=== PATIENT | male | born 1995 | race Caucasian/White ===

== ENCOUNTER 2017-09-30 07:15 | Emergency (ER) | payer BC ==
[2017-09-30 07:41] VITALS: BP 121/61
--- NOTE | 2017-09-30 07:55 | EDM.PDOC ---
ED HPI GENERAL MEDICAL PROBLEM - General Chief Complaint: Eye Problems Stated Complaint: "Flash Burn" to eyes Time Seen by Provider: 09/30/17 07:50 Source of Information: Reports: Patient, Family (Mother), Old Records ([facility] chart/EMR) History Limitations: Reports: No Limitations - History of Present Illness INITIAL COMMENTS - FREE TEXT/NARRATIVE: The patient was brought to the emergency room via private automobile by his mother for evaluation of 8/10 bilateral burning eye pain secondary to probable welder tack burn, which occurred at about 16:00 hours yesterday afternoon. Patient was working on a car at his home and was briefly welding without using any kind 5 protection. Previous to this he was also grinding some metal on his car without safety glasses, however denies any known history of foreign body, etc. He has had trouble seeing since this morning with progressive symptoms since that time. Last TdAP was given on 01/03/03 as confirmed by the emergency room note today. The patient also denies any recent fever, cough, wheezing, dyspnea, etc.. No recent history of abdominal pain, heartburn, nausea, diarrhea, melena, gross hematochezia, or any food intolerance, including fatty foods, etc.. Onset: Gradual Onset Date: 09/29/17 Onset Time: 16:00 Duration: Constant, Getting Worse Location: Reports: Face (Eyes bilaterally as above). Denies: Head, Neck, Chest , Abdomen, Back Quality: Reports: Burning, Same as Previous Episode Severity: Moderate Improves with: Reports: None Worsens with: Reports: None Context: Reports: Other (As above). Denies: Sick Contact, Trauma Associated Symptoms: Reports: No Other Symptoms. Denies: Confusion, Chest Pain , Cough, Diaphoresis, Fever/Chills, Headaches, Loss of Appetite, Nausea/Vomiting , Rash, Shortness of Breath, Weakness Treatments ADMINISTRATIVE TECH: Reports: Other (see below) (None) Bilateral Eye Pain Score (Numeric/FACES): 8 - Related Data Allergies Allergy/AdvReac Type Severity Reaction Status Date / Time amoxicillin trihydrate Allergy Severe Other Verified 11/21/14 01:23 [From Augmentin] potassium clavulanate Allergy Severe Other Verified 11/21/14 01:23 [From Augmentin] blueberry Allergy Hives Verified 11/21/14 01:23 Home Meds: Home Meds Albuterol Sulfate [Albuterol Sulfate HFA] 8.5 gm IH Q4HR PRN 11/21/14 [History] Fluticasone Propionate [Flovent HFA 220 MCG] 1 puff INH BID PRN 11/21/14 [ History] Polymyxin B Sulf/Trimethoprim [Polytrim Eye Drops] 2 drop EYEBOTH QID #1 bottle 09/30/17 [Rx] Past Medical History HEENT History: Reports: Allergic Rhinitis, Impaired Vision, Other (See Below). Denies: Glaucoma, Hard of Hearing, Macular Degeneration, Otitis Media, Retinal Detachment Other HEENT History: Nasal fracture 2 initially at age 14 with last fracture at age 16. Patient does have soft contact lenses and glasses, however he never wears these. Cardiovascular History: Reports: Heart Murmur, Hypertension, Other (See Below). Denies: Aneurysm, Arrhythmia, Blood Clots/VTE/DVT, High Cholesterol, Syncope Other Cardiovascular History: Benign heart murmur as an . Hypertension with no current medical therapy after intentional weight loss. Respiratory History: Reports: Asthma, Bronchitis, Recurrent. Denies: Intubation , Previous, PE, Pneumothorax, Sleep Apnea Gastrointestinal History: Reports: None. Denies: Celiac Disease, Cholelithiasis , Gastritis, GERD, GI Bleed, Hepatitis, Hiatal Hernia, Inflammatory Bowel Disease, Irritable Bowel Syndrome, Jaundice, Pancreatitis, PUD Genitourinary History: Reports: None. Denies: Chronic Renal Insuffiency, Renal Calculus, Retention, Urinary, STD, Urinary Incontinence, UTI, Recurrent Musculoskeletal History: Reports: Fracture, Other (See Below). Denies: Arthritis, Back Pain, Chronic, Gout, Neck Pain, Chronic, Osteoarthritis, RA, SLE Other Musculoskeletal History: Questionable right hand proximal phalangeal fractures of digits #2, 3, and 4 with negative x-rays on 01/07/09. Distal right fourth and fifth metacarpal fractures in about 2012. Severe left ankle sprain on 09/04/10. History of recurrent torticollis area. Neurological History: Reports: Concussion, Headaches, Chronic, Head Trauma, Other (See Below). 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 Head concussion at age 12. Psychiatric History: Reports: ADD, ADHD, Anxiety, Depression, Emotional Problems , Other (See Below). Denies: Abuse, Victim of, Addiction, Psych Hospitalization (s), PTSD, Suicide Attempt, Suicidal Ideation Other Psychiatric History: Borderline anxiety and ADHD with secondary school problems, confrontational behavior, etc. with patient not able to complete high school. He did have problems with a principal during grade school. No medical therapy to this point. Endocrine/Metabolic History: Reports: Obesity/BMI 30+. Denies: Diabetes, Type I , Diabetes, Type II, Hypothyroidism, IDDM Hematologic History: Reports: None. Denies: Anemia, Blood Transfusion(s), Iron Deficiency Immunologic History: Reports: None. Denies: AIDS, HIV, SLE Oncologic (Cancer) History: Reports: None. Denies: Basal Cell Carcinoma, Hodgkin's Lymphoma, Leukemia, Lymphoma, Malignant Melanoma, Non-Hodgkin's Lymphoma, Squamous Cell Carcinoma Dermatologic History: Reports: None. Denies: Eczema, Psoriasis - Infectious Disease History Infectious Disease History: Reports: None. Denies: C-Difficile, Chicken Pox, Measles, Meningitis, Mononucleosis, MRSA, Mumps, Pertussis (Whooping Cough), Rheumatic Fever, Rubella, Scarlet Fever, Shingles, TB, VRE - Past Surgical History Head Surgeries/Procedures: Reports: None HEENT Surgical History: Reports: None. Denies: Adenoidectomy, Eye Surgery, Myringotomy w Tube(s), Naso-Sinus Surgery, Oral Surgery, Tonsillectomy Cardiovascular Surgical History: Reports: None. Denies: Varicose Respiratory Surgical History: Reports: None. Denies: Thoracentesis GI Surgical History: Reports: Appendectomy, Other (See Below). Denies: Cholecystectomy, Colonoscopy, EGD, Hernia, Inguinal, Hernia Repair/Other Other GI Surgeries/Procedures: Appendectomy on 01/08/02 Male Surgical History: Reports: Circumcision, Other (See Below). Denies: Vasectomy Other Male Surgeries/Procedures: Circumcision as an infant Endocrine Surgical History: Reports: None. Denies: Thyroid Biopsy Neurological Surgical History: Reports: None. Denies: C-Spine, Discectomy, Laminectomy, Lumbar Spine, Sacral Spine, Spinal Fusion, Thoracic Spine, Vertebroplasty Musculoskeletal Surgical History: Reports: None. Denies: Arthroscopic Procedure , Carpal Tunnel, Ganglion Cyst, Joint Replacement, ORIF, Shoulder Surgery Oncologic Surgical History: Reports: None Dermatological Surgical History: Reports: None - Past Imaging History Past Imaging History: Reports: CAT Scan (Last CT scan of the abdomen and pelvis on 02/03/09) Social & Family History - Tobacco Use Smoking Status *Q: Current Every Day Smoker Tobacco Use Within Last Twelve Months: Cigarettes Years of Tobacco use: 3 Packs/Tins Daily: 0.5 Packs/Tins Daily Comment: Maximum use of one pack per day Used Tobacco, but Quit: No Smoking Cessation Information Provided To Patient: Yes Second Hand Smoke Exposure: Yes Source of Second Hand Smoke Exposure: Father smokes Second Hand Smoke Education Provided: Yes - Alcohol Use Alcohol Use History: Yes Days Per Week of Alcohol Use: 0 Number of Drinks Per Day: 1 Number of Drinks Per Day Comment: Usually one beer per month. No previous DWIs, problems with alcohol abuse, etc. Total Drinks Per Week: 0 Alcohol Use in Last Twelve Months: Yes Alcohol Use Frequency: Rarely - Recreational Drug Use Recreational Drug Use: No Drug Use in Last 12 Months: No Recreational Drug Type: Denies: Amphetamines (Speed), Cocaine, Heroin, Inhalants (Glues, Solvents, Aerosols), LSD (Acid), Marijuana/Hashish, Methamphetamine, Morphine, Oxycodone - Living Situation & Occupation Living situation: Reports: Single, with Family (Parents) Occupation: Employed (Self-employed in yard work, construction, etc. He is now doing home online schooling but does not wish to obtain a GED) ED ROS GENERAL - Review of Systems Review Of Systems: ROS reveals no pertinent complaints other than HPI. ED EXAM GENERAL W FULL EYE - Physical Exam Exam: See Below Exam Limited By: No Limitations General Appearance: Alert, WD/WN, No Apparent Distress Eye Exam: Bilateral Eye: Conjunctival Injection, EOMI, Normal Fundi (No nystagmus) Visual Acuity (R) 20/: 25 Visual Acuity (L) 20/: 25 With Correction: No Eyelids: Bilateral: Normal Appearance, Lid Everted for Exam Conjunctiva & Sclera: Bilateral: Injected (Right greater than left) Cornea Exam: Bilateral: Examined with Flourescein, Other (Borderline mild corneal estrada bilaterally) Extraocular Movements: Bilateral: Intact Pupils: Normal Accommodation Pupillary Size: Bilateral: 6 mm Pupillary Reaction: Bilateral: Brisk Anterior Chamber: Bilateral: Normal Appearance Posterior Chamber: Bilateral: Normal Funduscopic Ears: Normal External Exam, Normal Canal, Hearing Grossly Normal, Normal TMs Nose: Normal Inspection, Normal Mucosa, No Blood Throat/Mouth: Normal Inspection, Normal Lips, Normal Teeth, Normal Gums, Normal Oropharynx, Normal Voice, No Airway Compromise. No: Dysphagia, Perioral Cyanosis Head: Atraumatic, Normocephalic. No: Facial Swelling, Facial Tenderness, Sinus Tenderness Neck: Normal Inspection, Supple, Non-Tender, Full Range of Motion. No: Lymphadenopathy (L), Lymphadenopathy (R), Thyromegaly Respiratory/Chest: No Respiratory Distress, Lungs Clear, Normal Breath Sounds, No Accessory Muscle Use, Chest Non-Tender. No: Pleural Rub, Retractions Cardiovascular: Normal Peripheral Pulses, Regular Rate, Rhythm, No Edema, No Gallop, No JVD, No Murmur, No Rub. No: Gallop/S3, Gallop/S4, Friction Rub GI/Abdominal: Normal Bowel Sounds, Soft, Non-Tender, No Organomegaly, No Distention, No Abnormal Bruit, No Mass, Other (Obese). No: Guarding (Male) Exam: Deferred Rectal (Males) Exam: Deferred Back Exam: Normal Inspection, Full Range of Motion. No: CVA Tenderness (L), CVA Tenderness (R), Muscle Spasm Extremities: Normal Inspection, Normal Range of Motion, Non-Tender, Normal Capillary Refill, No Pedal Edema Neurological: Alert, Oriented, CN II-XII Intact, Normal Cognition, Normal Gait, No Motor/Sensory Deficits Psychiatric: Normal Affect, Normal Mood Skin Exam: Warm, Dry, Intact, Normal Color, No Rash, Tattoo(s) (Multiple). No: Diaphoretic, Wound/Incision Lymphatic: No Adenopathy ED EYE w/ Add Procedure - Eye Procedure Alcaine Drops Administered: Yes Eye FB Removal: no Removal w/ Cotton Swab, no Removal w/ Needle, Other (No foreign body) Eye Irrigated w/ Saline (ccs): 30 (Each eye) Course - Vital Signs Last Recorded V/S: Last Vital Signs Temp 36.6 C 09/30/17 07:15 Pulse 79 09/30/17 07:15 Resp 14 09/30/17 07:15 BP 121/61 09/30/17 07:15 Pulse Ox 99 09/30/17 07:15 Vital Signs - 24 hr 06/28/18 07:15 Temperature [ 36.6 C Temporal] Pulse, 79 Peripheral [ Pulse Oximetry] Respiratory 14 Rate Blood Pressure 121/61 [Left Upper Arm ] O2 Sat by Pulse 99 Oximetry - Orders/Labs/Meds Orders: Active Orders 24 hr Category Date Time Status Vaccines to be Administered [RC] PER UNIT ROUTINE Care 09/30/17 07:57 Active Obtain Past Medical Record [OM.PC] Routine Oth 09/30/17 07:56 Active Labs: None Meds: Medications Discontinued Medications Generic Name Dose Route Start Last Admin Trade Name Maged PRN Reason Stop Dose Admin Balanced Salt Solution 30 ml 09/30/17 07:57 09/30/17 08:09 Eye Stream Eye Rinse EYEBOTH 09/30/17 07:58 1 applic ONETIME ONE Administration Balanced Salt Solution 30 ml 09/30/17 08:15 09/30/17 08:22 Eye Stream Eye Rinse EYELF 09/30/17 08:16 1 applic ONETIME ONE Administration Diphtheria/Tetanus/Acell Pertussis 0.5 ml 09/30/17 07:56 09/30/17 08:06 Adacel IM 09/30/17 07:57 0.5 ml .ONCE ONE Administration Tetracaine HCl 1 ml 09/30/17 08:01 09/30/17 08:09 Tetracaine 0.5% Steri-Unit Sydnee EYEBOTH 09/30/17 08:02 1 applic ASDIRECTED ONE Administration - Radiology Interpretation Free Text/Narrative:: None Departure - Departure Time of Disposition: 08:55 Disposition: Home, Self-Care 01 Condition: Good Clinical Impression: Corneal burn, Obesity (BMI 30-39.9), Asthma, Allergic rhinitis, Hypertension, Tobacco abuse counseling - Discharge Information Prescriptions: Polymyxin B Sulf/Trimethoprim [Polytrim Eye Drops] 2 drop EYEBOTH QID #1 bottle Instructions: Chemical Conjunctivitis, Adult, [id number], Steps to Quit Smoking Referrals: Girma Hutton MD [Primary Care Provider] - Forms: ED Department Discharge Additional Instructions: 1. Follow up with your regular provider in 2-5 days as needed, if symptoms persist. Bring these discharge instructions with you to that visit.. 2. Tylenol 650 mg by mouth every 4 hours and/or OTC ibuprofen 2-3 tabs by mouth every 6 hours with food as directed./needed. 3. Wear welder tack mccloud, safety glasses, etc. at all times as discussed. 4. Polytrim eyedrops 2 drops in the affected eye 4 times a day with every 2 hours as needed for at least 5 days AND until 48 hours after complete resolution of symptoms as directed. You may use additional OTC artificial tears as needed as per label instructions. - Problem List & Annotations (1) Corneal burn SNOMED Code(s): 305701171 Code(s): T26.10XA - BURN OF CORNEA AND CONJUNCTIVAL SAC, UNSP EYE, INIT ENCNTR Status: Acute Priority: High Current Visit: Yes Onset Date: 09/29 Annotation/Comment:: Mild bilateral corneal/conjunctival estrada secondary to use of welder tack as above. No foreign body noted. Tetracaine drops placed both prior to examination after completion of eye irrigation. DTaP given. Patient and his mother were counseled extensively concerning the importance of using safety glasses, although she looks, etc. at all times. Injury occurred at home. Note no work excuse me by patient history. Qualifiers: Encounter type: initial encounter Laterality: unspecified laterality Qualified Code(s): T26.10XA - Burn of cornea and conjunctival sac, unspecified eye, initial encounter (2) Asthma SNOMED Code(s): 366191010 Code(s): J45.909 - UNSPECIFIED ASTHMA, UNCOMPLICATED Status: Chronic Priority: Medium Current Visit: Yes Annotation/Comment:: No recent fever or bronchitic type symptoms. Qualifiers: Asthma severity: mild Asthma persistence: intermittent Asthma complication type: uncomplicated Qualified Code(s): J45.20 - Mild intermittent asthma, uncomplicated (3) Obesity (BMI 30-39.9) SNOMED Code(s): 501195299, 489269745 Code(s): E66.9 - OBESITY, UNSPECIFIED Status: Chronic Priority: Medium Current Visit: Yes Annotation/Comment:: Weight loss in moderation advisable (4) Allergic rhinitis SNOMED Code(s): 88964111 Code(s): J30.9 - ALLERGIC RHINITIS, UNSPECIFIED Status: Chronic Priority : High Current Visit: Yes Annotation/Comment:: Stable by history Qualifiers: Allergic rhinitis trigger: unspecified Allergic rhinitis seasonality: unspecified seasonality Qualified Code(s): J30.9 - Allergic rhinitis, unspecified (5) Hypertension SNOMED Code(s): 14137265 Code(s): I10 - ESSENTIAL (PRIMARY) HYPERTENSION Status: Chronic Priority : Medium Current Visit: Yes Annotation/Comment:: Continue to observe his blood pressure closely through his regular providers with no medications required after intentional weight loss as above Qualifiers: Hypertension type: essential hypertension Qualified Code(s): I10 - Essential (primary) hypertension (6) Tobacco abuse counseling SNOMED Code(s): 254391141, 440772560, 908611186 Code(s): Z71.6 - TOBACCO ABUSE COUNSELING Status: Chronic Priority: Medium Current Visit: Yes Annotation/Comment:: Tobacco cessation encouraged with information provided at discharge. (7) ADHD SNOMED Code(s): 271967713 Code(s): F90.9 - ATTENTION-DEFICIT HYPERACTIVITY DISORDER, UNSPECIFIED TYPE Status: Chronic Priority: Medium Current Visit: Yes Annotation/Comment: : No medical therapy for now per patient and his mother's request. Patient somewhat anxious and confrontational today. He was able to be calmed down by his mother, however. Continue to observe closely by family members Qualifiers: Attention deficit-hyperactivity disorder type: predominantly hyperactive Qualified Code(s): F90.1 - Attention-deficit hyperactivity disorder, predominantly hyperactive type - Problem List Review Problem List Initiated/Reviewed/Updated: Yes - My Orders Last 24 Hours: My Active Orders 09/30/17 07:56 Obtain Past Medical Record [OM.PC] Routine 09/30/17 07:57 Vaccines to be Administered [RC] PER UNIT ROUTINE - Assessment/Plan Last 24 Hours: My Active Orders 09/30/17 07:56 Obtain Past Medical Record [OM.PC] Routine 09/30/17 07:57 Vaccines to be Administered [RC] PER UNIT ROUTINE Assessment:: As above Plan: As above. Extensive precautions were given to the patient and his mother, who are in agreement with the treatment plan. See Patient Instructions for further treatment and plan.
[2017-09-30] MEDS ORDERED: Diphtheria,Pertussis(Acell),Tetanus Vaccine 0.5 ML SDV IM ONE (07:56)
[2017-09-30] MEDS ORDERED: Balanced Salt Solution Ophth Irrig 30 ML Bottle EYEBOTH ONE (07:57)
[2017-09-30] MEDS ORDERED: Tetracaine HCl/PF 0.5% 4 ML Bottle EYEBOTH ONE (08:01)
[2017-09-30] MEDS ORDERED: Balanced Salt Solution Ophth Irrig 30 ML Bottle EYELF ONE (08:15)
== END 2017-09-30 08:55 | disposition home or self-care (01) ==
LOC: LL.ED 07:15
DX: T26.10XA Burn of cornea and conjunctival sac, unspecified eye, initial encounter (principal); F17.210 Nicotine dependence, cigarettes, uncomplicated; J45.909 Unspecified asthma, uncomplicated; F90.9 Attention-deficit hyperactivity disorder, unspecified type; I10 Essential (primary) hypertension; Z71.6 Tobacco abuse counseling; Z88.1 Allergy status to other antibiotic agents; Z79.899 Other long term (current) drug therapy; Z23 Encounter for immunization; W89.0XXA Exposure to welding light (arc), initial encounter; E66.9 Obesity, unspecified; Z68.30 Body mass index [BMI] 30.0-30.9, adult
CPT/HCPCS: 90471; 90715; 99283; A9270-GY

== ENCOUNTER 2021-01-26 23:02 | Emergency (ER) | payer BC ==
[2021-01-26 23:11] VITALS: BP 132/91; PULSE 90
--- NOTE | 2021-01-26 23:19 | EDM.PDOC ---
ED HPI GENERAL MEDICAL PROBLEM - General Chief Complaint: ENT Problem Stated Complaint: Tooth pain Time Seen by Provider: 01/26/21 23:09 Source of Information: Reports: Patient - History of Present Illness INITIAL COMMENTS - FREE TEXT/NARRATIVE: Patient presents to the ED with right upper tooth pain. He states it has been bothering him for the last 5 days and he had some gingival swelling but does not like doctors or medications so was living with it. His mother is a nurse here and he asked to find a dentist yesterday. IT is the weekend and they had planned on going locally tomorrow. Tonight shortly after eating he had sudden drainage of the swelling that he had and then swelling of the cheek on the right,. cheek is swelling but not pushing on the eye or causing vision changes, just local swelling effect. no fever, nochange in mental status. Has GI intoelrance to penicillin.Was able to eat tonight Onset Date: 01/21/21 Duration: Getting Worse - Related Data Allergies Allergy/AdvReac Type Severity Reaction Status Date / Time amoxicillin trihydrate Allergy Severe Other Verified 11/21/14 01:23 [From Augmentin] potassium clavulanate Allergy Severe Other Verified 11/21/14 01:23 [From Augmentin] blueberry Allergy Hives Verified 11/21/14 01:23 Home Meds: Home Meds Albuterol Sulfate [Albuterol Sulfate HFA] 8.5 gm IH Q4HR PRN 11/21/14 [History] Fluticasone Propionate [Flovent HFA 220 MCG] 1 puff INH BID PRN 11/21/14 [History] Polymyxin B Sulf/Trimethoprim [Polytrim Eye Drops] 2 drop EYEBOTH QID #1 bottle 09/30/17 [Rx] Clindamycin HCl 300 mg PO TID #30 capsule 01/26/21 [Rx] Past Medical History HEENT History: Reports: Allergic Rhinitis, Impaired Vision, Other (See Below). Denies: Glaucoma, Hard of Hearing, Macular Degeneration, Otitis Media, Retinal Detachment Other HEENT History: Nasal fracture 2 initially at age 14 with last fracture at age 16. Patient does have soft contact lenses and glasses, however he never wears these. Cardiovascular History: Reports: Heart Murmur, Hypertension, Other (See Below). Denies: Aneurysm, Arrhythmia, Blood Clots/VTE/DVT, High Cholesterol, Syncope Other Cardiovascular History: Benign heart murmur as an infant. Hypertension with no current medical therapy after intentional weight loss. Respiratory History: Reports: Asthma, Bronchitis, Recurrent. Denies: Intubation, Previous, PE, Pneumothorax, Sleep Apnea Gastrointestinal History: Reports: None. Denies: Celiac Disease, Cholelithiasis, Gastritis, GERD, GI Bleed, Hepatitis, Hiatal Hernia, Inflammatory Bowel Disease, Irritable Bowel Syndrome, Jaundice, Pancreatitis, PUD Genitourinary History: Reports: None. Denies: Chronic Renal Insuffiency, Renal Calculus, Retention, Urinary, STD, Urinary Incontinence, UTI, Recurrent Musculoskeletal History: Reports: Fracture, Other (See Below). Denies: Arthritis, Back Pain, Chronic, Gout, Neck Pain, Chronic, Osteoarthritis, RA, SLE Other Musculoskeletal History: Questionable right hand proximal phalangeal fractures of digits #2, 3, and 4 with negative x-rays on 01/07/09. Distal right fourth and fifth metacarpal fractures in about 2012. Severe left ankle sprain on 09/04/10. History of recurrent torticollis area. Neurological History: Reports: Concussion, Headaches, Chronic, Head Trauma, Other (See Below). 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 Head concussion at age 12. Psychiatric History: Reports: ADD, ADHD, Anxiety, Depression, Emotional Problems, Other (See Below). Denies: Abuse, Victim of, Addiction, Psych Hospitalization(s), PTSD, Suicide Attempt, Suicidal Ideation Other Psychiatric History: Borderline anxiety and ADHD with secondary school problems, confrontational behavior, etc. with patient not able to complete high school. He did have problems with a principal during grade school. No medical therapy to this point. Endocrine/Metabolic History: Reports: Obesity/BMI 30+. Denies: Diabetes, Type I, Diabetes, Type II, Hypothyroidism, IDDM Hematologic History: Reports: None. Denies: Anemia, Blood Transfusion(s), Iron Deficiency Immunologic History: Reports: None. Denies: AIDS, HIV, SLE Oncologic (Cancer) History: Reports: None. Denies: Basal Cell Carcinoma, Hodgkin's Lymphoma, Leukemia, Lymphoma, Malignant Melanoma, Non-Hodgkin's Lymphoma, Squamous Cell Carcinoma Dermatologic History: Reports: None. Denies: Eczema, Psoriasis - Infectious Disease History Infectious Disease History: Reports: None. Denies: C-Difficile, Chicken Pox, Measles, Meningitis, Mononucleosis, MRSA, Mumps, Pertussis (Whooping Cough), Rheumatic Fever, Rubella, Scarlet Fever, Shingles, TB, VRE - Past Surgical History Head Surgeries/Procedures: Reports: None HEENT Surgical History: Reports: None. Denies: Adenoidectomy, Eye Surgery, Myringotomy w Tube(s), Naso-Sinus Surgery, Oral Surgery, Tonsillectomy Cardiovascular Surgical History: Reports: None. Denies: Varicose Respiratory Surgical History: Reports: None. Denies: Thoracentesis GI Surgical History: Reports: Appendectomy, Other (See Below). Denies: Cholecystectomy, Colonoscopy, EGD, Hernia, Inguinal, Hernia Repair/Other Other GI Surgeries/Procedures: Appendectomy on 01/08/02 Male Surgical History: Reports: Circumcision, Other (See Below). Denies: Vasectomy Other Male Surgeries/Procedures: Circumcision as an infant Endocrine Surgical History: Reports: None. Denies: Thyroid Biopsy Neurological Surgical History: Reports: None. Denies: C-Spine, Discectomy, Laminectomy, Lumbar Spine, Sacral Spine, Spinal Fusion, Thoracic Spine, Vertebroplasty Musculoskeletal Surgical History: Reports: None. 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 is now doing home online schooling but does not wish to obtain a GED) ED ROS ENT - Review of Systems Review Of Systems: See Below Constitutional: Reports: No Symptoms HEENT: Reports: Dental Pain (with drainage and swelling of the right cheek) Respiratory: Reports: No Symptoms Cardiovascular: Reports: No Symptoms Endocrine: Reports: No Symptoms GI/Abdominal: Reports: No Symptoms : Reports: No Symptoms Musculoskeletal: Reports: No Symptoms Skin: Reports: No Symptoms Neurological: Reports: No Symptoms ED EXAM, ENT - Physical Exam Exam: See Below Exam Limited By: No Limitations General Appearance: Alert, Mild Distress Eye Exam: Bilateral Eye: EOMI, Normal Inspection, PERRL Ears: Normal External Exam, Normal Canal, Hearing Grossly Normal, Normal TMs Nose: Normal Inspection, Normal Mucousa Mouth/Throat: Dental Abcess (right upper with drainage, some tenderness to palpation here at the 1st molar buccal side. swellling of the cheek noted, not encroaching eye), Other (no dental caries or broken teeth). No: Peritonsillar Mass, Pharyngeal Erythema, Throat Swelling Neck: Normal Inspection Respiratory/Chest: No Respiratory Distress, Lungs Clear, Chest Non-Tender Cardiovascular: Normal Peripheral Pulses, Regular Rate, Rhythm Course - Re-Assessments/Exams Free Text/Narrative Re-Assessment/Exam: 01/26/21 23:29 offered dental block, injection of rocephin, declined. will give 300 mg po now for antibiotics and send with tramadol one every 6 hours prn. understands to come back for increased swelling, mental status changes, swelling of eye. will follow up with dentist Departure - Departure Time of Disposition: 23:22 Disposition: Home, Self-Care 01 Condition: Good Clinical Impression: Dental abscess - Discharge Information *PRESCRIPTION DRUG MONITORING PROGRAM REVIEWED*: Not Applicable *COPY OF PRESCRIPTION DRUG MONITORING REPORT IN PATIENT SEUN: Not Applicable Prescriptions: Clindamycin HCl 300 mg PO TID #30 capsule Instructions: Dental Abscess, [id number] Additional Instructions: Take the antibiotics until gone. Return to the ED for increased swelling of the face, swelling around the eye, changes in mental status, fevers. Otherwise follow up with Dentist. Call to make appointment. You can take one of the tramadol every 6 hours as needed for pain. You can also use over the counter tylenol or motrin for pain. If you are having problems tolerating hot and cold sensations, use sensodyne toothpaste as a covering on it.
[2021-01-26] MEDS ORDERED: Clindamycin HCl 150 MG Cap PO ONE (23:21)
== END 2021-01-26 23:38 | disposition home or self-care (01) ==
LOC: LL.ED 23:02
DX: K04.7 Periapical abscess without sinus (principal); E78.00 Pure hypercholesterolemia, unspecified; I10 Essential (primary) hypertension; E66.9 Obesity, unspecified; Z68.30 Body mass index [BMI] 30.0-30.9, adult; Z86.73 Personal history of transient ischemic attack (TIA), and cerebral infarction without residual deficits; Z88.0 Allergy status to penicillin; Z91.018 Allergy to other foods
CPT/HCPCS: 99283; A9270

== ENCOUNTER 2021-06-27 17:32 | Emergency (ER) | payer BC ==
[2021-06-27 17:42] VITALS: BP 124/79; PULSE 110
[2021-06-27] MEDS ORDERED: Lidocaine 1% 5 ML VIAL INJECT ONE (18:08)
[2021-06-27] MEDS ORDERED: Bacitracin Oint 1 GM U/D Packet TOP ONE (18:08)
[2021-06-27] MEDS ORDERED: Lidocaine 1% 5 ML VIAL ONE (18:15)
== END 2021-06-27 18:42 | disposition home or self-care (01) ==
LOC: LL.ED 17:32
DX: S61.216A Laceration without foreign body of right little finger without damage to nail, initial encounter (principal); I10 Essential (primary) hypertension; E66.9 Obesity, unspecified; Z72.0 Tobacco use; Z68.30 Body mass index [BMI] 30.0-30.9, adult; Z88.0 Allergy status to penicillin; Z91.018 Allergy to other foods; W23.0XXA Caught, crushed, jammed, or pinched between moving objects, initial encounter
CPT/HCPCS: 12001; 99282-25; 99283

== ENCOUNTER 2022-10-03 11:33 | Emergency (ER) | payer BC ==
[2022-10-03 11:38] VITALS: BP 122/77; PULSE 89
== END 2022-10-03 12:30 | disposition home or self-care (01) ==
LOC: LL.ED 11:33
DX: S93.401A Sprain of unspecified ligament of right ankle, initial encounter (principal); I10 Essential (primary) hypertension; J45.909 Unspecified asthma, uncomplicated; E66.9 Obesity, unspecified; Z68.30 Body mass index [BMI] 30.0-30.9, adult; Z88.0 Allergy status to penicillin; Z91.018 Allergy to other foods; Z72.0 Tobacco use; X50.1XXA Overexertion from prolonged static or awkward postures, initial encounter
CPT/HCPCS: 73610-RT; 99283

== ENCOUNTER 2023-03-05 14:49 | Emergency (ER) | payer BC ==
[2023-03-05] MEDS ORDERED: Ondansetron 4 MG/2 ML SDV ONE (14:59)
[2023-03-05] MEDS ORDERED: fentaNYL 50 MCG/ML SDV IVPUSH ONE ×2 (15:00→16:14)
[2023-03-05] MEDS ORDERED: Naloxone 0.4 MG/ML SDV IVPUSH PRN (15:00)
[2023-03-05] MEDS ORDERED: fentaNYL 50 MCG/ML SDV ONE (15:00)
[2023-03-05] MEDS ORDERED: Ondansetron 4 MG/2 ML SDV IVPUSH ONE (15:01)
[2023-03-05] MEDS: Sodium Chloride 0.9% 10 ML Syringe FLUSH PRN ×2 (15:04→15:06)
[2023-03-05] MEDS ORDERED: Iopamidol 612 MG/ML 100 ML Bottle IVPUSH STA (15:06)
[2023-03-05 15:11] LABS: BASOPHILS ABSOLUTE AUTO 0.02 K/uL (0.00-0.20); BASOPHILS PERCENT AUTO 0.2 % (0.0-2.0); EOSINOPHILS ABSOLUTE AUTO 0.25 K/uL (0.00-0.50); HEMATOCRIT 45.9 % (39.0-49.0); LYMPHOCYTES ABSOLUTE AUTO 2.18 K/uL (0.50-3.50); LYMPHOCYTES PERCENT AUTO 17.8 % (10.0-50.0); MEAN CORPUSCULAR HEMOGLOBIN 32.1 pg (28.2-33.3); MEAN CORPUSCULAR HGB CONC 34.9 g/dL (31.7-36.0); MONOCYTES ABSOLUTE AUTO 0.75 K/uL (0.00-1.00); MONOCYTES PERCENT AUTO 6.1 % (2.0-14.0); NEUTROPHILS ABSOLUTE AUTO 9.03 K/uL (1.40-7.00); NEUTROPHILS PERCENT AUTO 73.9 % (45.0-80.0); PLATELET COUNT,PLT 247 K/uL (150-350); RED BLOOD CELL COUNT 4.99 M/uL (4.33-5.41); RED CELL DISTRIBUTION WIDTH 13.6 % (11.2-14.1); WHITE BLOOD CELL COUNT,WBC 12.2 K/uL (4.0-10.2)
[2023-03-05 15:31] LABS: ALANINE AMINOTRANSFERASE,ALT 47 U/L (12-78); ALBUMIN 3.9 g/dL (3.4-5.0); ALKALINE PHOSPHATASE 161 IU/L (46-116); ANION GAP 13.1 meq/L (7-15); ASPARTATE AMNIOTRANSFERASE,AST 24 U/L (15-37); BILIRUBIN TOTAL 0.3 mg/dL (0.2-1.0); BLOOD UREA NITROGEN,BUN 12 mg/dL (7-18); CALCIUM 8.8 mg/dL (8.5-10.1); CARBON DIOXIDE,CO2 22.9 mmol/L (21.0-32.0); CHLORIDE,CL 102 mmol/L (98-107); CREATININE 1.01 mg/dL (0.51-1.17); ESTIMATED GFR 106 mL/min (>=60); GLUCOSE RANDOM 119 mg/dL (70-99); POTASSIUM,K 3.8 mmol/L (3.5-5.1); PROTEIN TOTAL,TP 7.3 g/dL (6.4-8.2); SODIUM,NA 138 mmol/L (136-145)
[2023-03-05 15:37] LABS: INR 0.9 (0.9-1.1); PROTHROMBIN TIME 9.4 SEC (9.0-11.1)
[2023-03-05] MEDS ORDERED: LORazepam 2 MG/ML SDV IVPUSH ONE (16:41)
[2023-03-05 18:11] VITALS: BP 138/81; PULSE 76
== END 2023-03-05 16:55 ==
LOC: LL.ED 14:49
DX: S71.132A Puncture wound without foreign body, left thigh, initial encounter (principal); E66.9 Obesity, unspecified; I10 Essential (primary) hypertension; Z88.1 Allergy status to other antibiotic agents; Z91.018 Allergy to other foods; W32.0XXA Accidental handgun discharge, initial encounter
CPT/HCPCS: 36415; 73701-LT; 80053; 85025; 85610; 96374; 96375; 96376; 99285-25; J2060; J2405; J3010; J3490; Q9967

== ENCOUNTER 2023-11-17 00:16 | Emergency (ER) | payer BC ==
[2023-11-17 00:33] VITALS: BP 149/83; PULSE 99
[2023-11-17] MEDS: Diphtheria,Pertussis(Acell),Tetanus Vaccine 0.5 ML Syringe IM ONE (00:57)
== END 2023-11-17 01:15 | disposition home or self-care (01) ==
LOC: LL.ED 00:16
DX: S61.211A Laceration without foreign body of left index finger without damage to nail, initial encounter (principal); I10 Essential (primary) hypertension; J45.909 Unspecified asthma, uncomplicated; E66.9 Obesity, unspecified; F17.210 Nicotine dependence, cigarettes, uncomplicated; Z90.49 Acquired absence of other specified parts of digestive tract; Z23 Encounter for immunization; Z88.8 Allergy status to other drugs, medicaments and biological substances; Z91.018 Allergy to other foods; Z88.0 Allergy status to penicillin; X58.XXXA Exposure to other specified factors, initial encounter
CPT/HCPCS: 12001; 90471; 90715; 99282-25